=== PATIENT | male | born 1985 | race Caucasian/White ===

== ENCOUNTER 2018-12-26 22:08 | Emergency (ER) | payer OTHER ==
--- NOTE | 2018-12-26 22:14 | EDPHY ---
H & P Stated Complaint: fell climb inside 20ft landed on feet then fell to back and head Time Seen by Provider: 12/26/18 22:14 HPI/ROS: HPI CHIEF COMPLAINT: Fall 20 ft. HISTORY OF PRESENT ILLNESS: This is a 33-year-old male arrives to the emergency room by private vehicle after he fell slightly over 20 ft at a climbing gym. He was on a osmel however the blade not catch him he fell 20 ft landing on his feet bilaterally and then fell on his gluteus and then back. His main complaint is low back pain. He denies any focal weakness, denies numbness or tingling, denies chest pain or shortness of breath, denies neck pain , denies headache. His main complaint low back pain. He denies any heel pain or foot pain or ankle pain bilaterally. He arrives GCS 15, alert or x4, he was made a full trauma activation upon arrival due to his height of fall. Patient denies LOC. He arrives denies neck pain or headache. Upon arrival to the emergency room the patient is greeted evaluated by myself as well as Dr. Michel. Past Medical History: Denies medical history Past Surgical History: Denies surgical history Social History: He denies drugs alcohol tobacco. Family History: Noncontributing ROS REVIEW OF SYSTEMS: 10 Systems were reviewed and negative with the exception of the elements mentioned in the history of present illness. Exam Constitutional GCS 15 good or x4, no acute distress, triage nursing summary reviewed, vital signs reviewed, awake/alert. Eyes normal conjunctivae and sclera, EOMI, PERRLA. HENT normal inspection, atraumatic, moist mucus membranes, no epistaxis, neck supple/ no meningismus, no raccoon eyes. Respiratory clear to auscultation bilaterally, normal breath sounds, no respiratory distress, no wheezing. Cardiovascular rate normal, regular rhythm, no murmur, no edema, distal pulses normal. Gastrointestinal soft, non-tender, no rebound, no guarding, normal bowel sounds, no distension, no pulsatile mass. Genitourinary no CVA tenderness. Musculoskeletal Back exam:no significant midline back pain no step-offs no crepitus, he has good strength bilaterally of his lower extremities. Denies any numbness or tingling. no midline vertebral tenderness, full range of motion, no calf swelling, no tenderness of extremities, no meningismus, good pulses, neurovascularly intact. Skin pink, warm, & dry, no rash, skin atraumatic. Neurologic awake, alert and oriented x 3, AAOx3, moves all 4 extremities equally, motor intact, sensory intact, CN II-XII intact, normal cerebellar, normal vision, normal speech. Psychiatric normal mood/affect. Heme/Lymph/Immune no lymphadenopathy. Differential Diagnosis: Includes but is not limited to in a particular order acute fall over 20 ft, lumbar compression fracture, pelvis fracture, calcaneal fractures Medical Decision Making: Plan for this patient x-ray lumbar spine, x-ray of the pelvis chest x-ray. Re-evaluation: X-ray of the chest, thoracic spine, lumbar spine, pelvis all reviewed by myself. Negative for acute traumatic injury Also these images were reviewed by Radiology Dr. Vigil negative for acute traumatic injury. Patient this time 11:00 p.m. Resting comfortably no acute distress abdomen is soft nontender. Clear lungs bilaterally, stable vital signs. Waiting on urinalysis make sure there is no blood. 1239: PATIENT RE-EVALUATED THIS TIME RESTING COMFORTABLY NO ACUTE DISTRESS. Vital signs are stable. Patient ambulated well throughout the emergency without difficulty. P.o. Challenge well. X-rays reviewed negative Vitals stable Patient wanting to be discharged Friends at bedside. Returns precautions discussed. Source: Patient - Personal History Current Tetanus/Diphtheria Vaccine: Yes Current Tetanus Diphtheria and Acellular Pertussis (TDAP): Yes - Medical/Surgical History Hx Asthma: No Hx Chronic Respiratory Disease: No Hx Diabetes: No Hx Cardiac Disease: No Hx Renal Disease: No Hx Cirrhosis: No Hx Alcoholism: No Hx HIV/AIDS: No Hx Splenectomy or Spleen Trauma: No Other PMH: lasik - Social History Smoking Status: Never smoked Constitutional: Initial Vital Signs Temperature (C) 36.3 C 12/26/18 22:10 Heart Rate 79 12/26/18 22:10 Respiratory Rate 16 12/26/18 22:10 Blood Pressure 124/77 H 12/26/18 22:10 O2 Sat (%) 96 12/26/18 22:10 O2 Delivery Mode Room Air Allergies/Adverse Reactions: No Known Allergies Allergy (Unverified 12/26/18 22:13) Home Medications: Medication Instructions Recorded NK [No Known Home Meds] 12/26/18 Medical Decision Making - Diagnostics Imaging Results: Imaging Impressions Chest X-Ray 12/26/18 22:16 Impression: Negative for posttraumatic sequela. Thoracic spine 3 views including swimmers view. Reason for examination: Pain following trauma. Findings: A fracture is not identified. The bony alignment is normal. The paravertebral soft tissues are negative. Impression: Thoracic spine negative for fracture. Pelvis X-Ray 12/26/18 22:17 Impression: Negative for fracture. Lumbar Spine X-Ray 12/26/18 22:22 Impression: Negative for fracture. Thoracic Spine X-Ray 12/26/18 22:25 Impression: Negative for posttraumatic sequela. Thoracic spine 3 views including swimmers view. Reason for examination: Pain following trauma. Findings: A fracture is not identified. The bony alignment is normal. The paravertebral soft tissues are negative. Impression: Thoracic spine negative for fracture. - Data Points Laboratory Results: Laboratory Results 12/26/18 22:21 12/26/18 22:21 12/26/18 12/26/18 12/26/18 23:30 22:21 22:21 WBC RBC Hgb Hct MCV MCH MCHC RDW Plt Count MPV Neut % (Auto) Lymph % (Auto) Elk % (Auto) Eos % (Auto) Baso % (Auto) Nucleat RBC Rel Count Absolute Neuts (auto) Absolute Lymphs (auto) Absolute Monos (auto) Absolute Eos (auto) Absolute Basos (auto) Absolute Nucleated RBC Immature Gran % Immature Gran # PT 13.9 SEC SEC (12.0-15.0) INR 1.05 (0.83-1.16) APTT 26.6 SEC SEC (23.0-38.0) Sodium 136 mEq/L mEq/L (135-145) Potassium 4.2 mEq/L mEq/L (3.5-5.2) Chloride 102 mEq/L mEq/L (97-110) Carbon Dioxide 24 mEq/l mEq/l (22-31) Anion Gap 10 mEq/L mEq/L (6-14) BUN 18 mg/dL mg/dL (7-23) Creatinine 0.9 mg/dL mg/dL (0.7-1.3) Estimated GFR > 60 Glucose 93 mg/dL mg/dL (70-100) Calcium 10.0 mg/dL mg/dL (8.5-10.4) Urine Color YELLOW Urine Appearance MODERATELY TURBID Urine pH 5.0 (5.0-7.5) Ur Specific [place] 1.026 (1.002-1.030) Urine Protein 1+ H (NEGATIVE) Urine Ketones TRACE H (NEGATIVE) Urine Blood NEGATIVE (NEGATIVE) Urine Nitrate NEGATIVE (NEGATIVE) Urine Bilirubin NEGATIVE (NEGATIVE) Urine Urobilinogen NEGATIVE EU EU (0.2-1.0) Ur Leukocyte Esterase NEGATIVE (NEGATIVE) Urine RBC 1-3 /hpf /hpf (0-3) Urine WBC 1-3 /hpf /hpf (0-3) Ur Epithelial Cells NONE SEEN /lpf /lpf (NONE-1+) Uric Acid Crystals PRESENT /hpf /hpf (NONE-1+) Urine Mucus TRACE /lpf /lpf (NONE-1+) Urine Glucose NEGATIVE (NEGATIVE) 12/26/18 22:21 WBC 8.62 10^3/uL 10^3/uL (3.80-9.50) RBC 5.45 10^6/uL 10^6/uL (4.40-6.38) Hgb 16.1 g/dL g/dL (13.7-17.5) Hct 47.4 % % (40.0-51.0) MCV 87.0 fL fL (81.5-99.8) MCH 29.5 pg pg (27.9-34.1) MCHC 34.0 g/dL g/dL (32.4-36.7) RDW 12.6 % % (11.5-15.2) Plt Count 469 10^3/uL H 10^3/uL (150-400) MPV 8.7 fL fL (8.7-11.7) Neut % (Auto) 71.5 % % (39.3-74.2) Lymph % (Auto) 15.8 % % (15.0-45.0) Elk % (Auto) 9.3 % % (4.5-13.0) Eos % (Auto) 1.2 % % (0.6-7.6) Baso % (Auto) 1.6 % % (0.3-1.7) Nucleat RBC Rel Count 0.0 % % (0.0-0.2) Absolute Neuts (auto) 6.17 10^3/uL 10^3/uL (1.70-6.50) Absolute Lymphs (auto) 1.36 10^3/uL 10^3/uL (1.00-3.00) Absolute Monos (auto) 0.80 10^3/uL 10^3/uL (0.30-0.80) Absolute Eos (auto) 0.10 10^3/uL 10^3/uL (0.03-0.40) Absolute Basos (auto) 0.14 10^3/uL H 10^3/uL (0.02-0.10) Absolute Nucleated RBC 0.00 10^3/uL 10^3/uL (0-0.01) Immature Gran % 0.6 % % (0.0-1.1) Immature Gran # 0.05 10^3/uL 10^3/uL (0.00-0.10) PT INR APTT Sodium Potassium Chloride Carbon Dioxide Anion Gap BUN Creatinine Estimated GFR Glucose Calcium Urine Color Urine Appearance Urine pH Ur Specific [place] Urine Protein Urine Ketones Urine Blood Urine Nitrate Urine Bilirubin Urine Urobilinogen Ur Leukocyte Esterase Urine RBC Urine WBC Ur Epithelial Cells Uric Acid Crystals Urine Mucus Urine Glucose Medications Given: Discontinued Medications Sodium Chloride (Ns) 1,000 mls @ 0 mls/hr IV EDNOW ONE; Wide Open PRN Reason: Protocol Stop: 12/26/18 22:17 Last Admin: 12/26/18 22:30 Dose: 1,000 mls Ibuprofen (Motrin) 800 mg PO EDNOW ONE Stop: 12/26/18 23:45 Last Admin: 12/26/18 23:46 Dose: 800 mg Departure - Departure Disposition: Home, Routine, Self-Care Clinical Impression: Fall Condition: Good Instructions: Fall Prevention for Older Adults (ED), Contusion in Adults (ED) Additional Instructions: 1. Your x-ray did not reveal any significant trauma tonight. 2. However if you develop severe pain or new areas of pain including abdominal pain, chest pain, shortness of breath, back pain, numbness or tingling or worsening symptoms please immediately return to the ER. Referrals: NONE *PRIMARY CARE P,. [Primary Care Provider] - As per Instructions
[2018-12-26] MEDS ORDERED: NS 1,000 ML IV ONE (22:16)
[2018-12-26 22:33] LABS: PLATELET COUNT 469 10^3/uL (150-400)
[2018-12-26 22:41] LABS: INR 1.05 (0.83-1.16); PROTIME(PATIENT) 13.9 SEC (12.0-15.0)
[2018-12-26] MEDS ORDERED: IBUPROFEN 800 MG TAB PO ONE (23:44)
[2018-12-27 00:43] VITALS: BP 120/68
--- NOTE | 2018-12-28 12:28 | GCON ---
[f rep st] CONSULTATION CONSULTATION DATE OF CONSULTATION: 12/26/2018 Patient is a 33-year-old male who was at a climbing gym and fell 20 feet onto a padded deck. He came to the ER complaining of some low back pain. He denies any foot or calcaneal pain. He had no loss of consciousness. Denies any other injuries or major problems. He came primarily at the insistence of the people at the scene. He landed directly on his feet and then fell back onto his gluteus muscl es. PAST MEDICAL HISTORY: Noncontributory with no major hospitalizations, surgeries, or major illnesses. MEDICATIONS: None. ALLERGIES: None. SOCIAL HISTORY: Reveals he does not smoke. FAMILY HISTORY: Noncontributory. REVIEW OF SYSTEMS: Negative on a full 10-point review. PHYSICAL EXAMINATION: GENERAL: An alert, cooperative 33-year-old male in no acute distress. HEAD a nd NECK: Reveals him to be PERRLA with intact EOMs. Nonicteric. No adenopathy. NECK: Supple, non tender, without signs of trauma. CHEST: Clear and symmetric with no palpable rib or sternal abnorma lities. ABDOMEN: Soft, nontender, without masses, organomegaly, or bruits. CARDIAC: Reveals a reg ular rhythm without murmurs. PELVIS: Intact and nontender. EXTREMITIES: Reveal full range of jignesh on, full pulses with no tender areas. BACK: Reveals no step-offs or bony abnormalities. He has tom e mild muscular tenderness in the lower lumbar area. NEUROLOGIC: Physiologic and symmetric. IMPRESSION: Lower back pain secondary to fall with no obvious injuries. The patient's lumbar, pelvi s and thoracic spine films are negative for any significant injuries. Chest x-ray is negative. PLAN: Discharge from the ER with no major injuries. He has been instructed to call for followup if he develops any worsening symptoms. He was brought in as a full trauma activation because of the hei ght of his fall. /[id number]/MODL
== END 2018-12-27 00:40 | disposition home or self-care (01) ==
DX: M54.5 Low back pain (principal); E86.9 Volume depletion, unspecified; W09.8XXA Fall on or from other playground equipment, initial encounter; Y93.31 Activity, mountain climbing, rock climbing and wall climbing; Y92.39 Other specified sports and athletic area as the place of occurrence of the external cause